=== PATIENT | male | born 1970 | race African-American/Black ===

== ENCOUNTER 2019-11-20 11:00 | Outpatient (RCR) | payer BC, SELFPAY ==
[2019-09-18 09:21] VITALS: BMI 33.2
[2019-11-20 11:04] VITALS: BMI 33.3
[2019-11-20 11:07] VITALS: BMI 33.3
== END 2019-12-17 23:59 | disposition home or self-care (01) ==
LOC: ANHDMC 11:00
PROVIDERS: PCP Family Medicine; Visit Provider Family Medicine
DX: E11.65 Type 2 diabetes mellitus with hyperglycemia (principal); Z71.3 Dietary counseling and surveillance
CPT/HCPCS: 97802

== ENCOUNTER 2022-08-21 09:06 | Outpatient (CLI) | payer OTHER, SELFPAY ==
[2022-08-21 19:55] LABS: Alanine Aminotransferase 47 U/L (6-50); Albumin Level 4.4 g/dL (3.5-5.1); Alkaline Phosphatase 85 U/L (38-126); Anion Gap 8 mmol/L (8-16); Aspartate Amino Transferase 79 U/L (17-59); Bilirubin,Total 0.5 mg/dL (0.2-1.3); Blood Urea Nitrogen 25 mg/dL (9-20); Calcium 9.6 mg/dL (8.4-10.2); Carbon Dioxide 30 mmol/L (22-30); Chloride 102 mmol/L (98-107); Cholesterol 113 mg/dL (0-200); Estimated Glomerular Filt Rate 56; Glucose 87 mg/dL (65-110); HDL Direct 53 mg/dL; Potassium 4.5 mmol/L (3.4-5.0); Sodium 140 mmol/L (137-145); Triglycerides 50 mg/dL (<150)
[2022-08-21 20:06] LABS: LDL Cholesterol Direct 35 mg/dL
[2022-08-21 21:32] LABS: Creatinine Urine 212.9 mg/dL
[2022-08-21 21:37] LABS: MALB Creatinine Ratio 4.1 mg/g (0-30); Microalbumin Urine Random 8.8 mg/L (0-16.7)
== END 2022-08-21 09:07 | disposition home or self-care (01) ==
LOC: ANHGOSHLAB 09:08
PROVIDERS: PCP Family Medicine; Visit Provider Family Medicine
DX: E11.9 Type 2 diabetes mellitus without complications (principal)
CPT/HCPCS: 36415; 80053; 80061; 82043; 82607; 83036

== ENCOUNTER 2023-02-01 11:15 | Outpatient (CLI) | payer OTHER, SELFPAY ==
[2023-02-01 20:06] LABS: Kit Draw Collected
== END 2023-02-01 11:16 | disposition home or self-care (01) ==
LOC: ANHGOSHLAB 11:17
PROVIDERS: PCP Family Medicine; Visit Provider Family Medicine
DX: E11.9 Type 2 diabetes mellitus without complications (principal); Z12.5 Encounter for screening for malignant neoplasm of prostate
CPT/HCPCS: 36415

== ENCOUNTER 2023-06-04 11:46 | Day surgery (SDC) | payer OTHER, SELFPAY ==
[2023-05-16 07:53] VITALS: BMI 30.1
--- NOTE | 2023-06-01 14:10 | WPDANESEPPF ---
Anes - Initial Pre Proc Eval Procedure: Operation Date: 06/04/23 14:00 Proposed Procedures p Screening Colonoscopy - Barrett Garcia MD Date/Time: 06/01/23 14:10 Surgeon: Barrett Garcia MD Pre Op Diagnosis: Neoplasm Screening Patient Data Age: 52 Gender: M Height: 1.73 m Weight: 89.811 kg Allergies Allergy/AdvReac Type Severity Reaction Status Date / Time No Known Allergies Allergy Verified 06/04/23 12:24 Home Medications Medication Instructions Recorded Confirmed Type flash glucose sensor (FreeStyle See Rx Instructions .Route 11/28/21 06/04/23 Rx Simona 14 Day Sensor kit) .COMPLEX #6 ea sildenafil 100 mg tablet See Rx Instructions .Route 05/17/22 06/04/23 Rx .COMPLEX #30 tabs atorvastatin 10 mg tablet See Rx Instructions .Route 02/27/23 06/04/23 Rx .COMPLEX #90 tabs lisinopril 2.5 mg tablet See Rx Instructions .Route 02/27/23 06/04/23 Rx .COMPLEX #90 tabs metformin 500 mg tablet,extended See Rx Instructions .Route 02/27/23 06/04/23 Rx release 24 hr .COMPLEX #360 tabs sodium,potassium,mag sulfates 17.5 See Rx Instructions PO .COMPLEX 05/16/23 06/04/23 Rx gram-3.13 gram-1.6 gram oral soln #354 mL (Suprep Bowel Prep Kit) cinnamon bark 500 mg capsule 500 mg PO DAILY 05/23/23 06/04/23 History (Cinnamon) multivitamin 1 tablet PO DAILY 05/23/23 06/04/23 History Patient hx anesthesia problems: none Family hx anesthesia problems: none Results Review: All pre-operative results and documents have been reviewed as part of the pre-operative evaluation. [facility] Past Medical History Medical History (Updated 06/04/23 @ 12:59 by Barrett Garcia MD) Cervical radiculopathy at C5 Hypertension Mixed hyperlipidemia Right elbow tendonitis Sprain of medial collateral ligament of right knee, initial encounter Type 2 diabetes mellitus without complications Family History Family History Mother Family history of malignant neoplasm of breast in first degree relative Social History Social History (Reviewed 06/29/23 @ 10:26 by HOLDEN Mcfarland Smoking status: Never smoker Alcohol intake: current Substance use type: does not use Lack of Transportation: No Lack of Food: Never True Current Housing: I Have Housing Concerned About Future Housing: No Difficulty Paying Gas/Electric Bills: No Difficulty Paying for Meds: No Currently Unemployed: No Education: Master's Degree or Higher Difficulty w/ Childcare or Family Care: No Gender identity (if verbalized by the patient): Male Spiritual care concerns: No Anes - Eval Final PreProcedure Day of Procedure 06/01/23 14:10 Patient weight: obese Heart: regular rate and rhythm Lungs: clear to auscultation Airway: Mallampati scale class II Neurological: alert and oriented Last oral intake: >/= 8 hours ASA classification: III Emergent: no Anesthetic plan: proceed Anesthesia type and monitoring: general GIVS and standard monitoring Results Review: All pre-operative results and documents have been reviewed as part of the pre-operative evaluation. Informed Consent: The patient's anesthetic plan and its attendant risks and benefits were discussed with the patient/family/POA. Questions were solicited and answers provided to the satisfaction of the patient/family/POA.
[2023-06-04 12:25] VITALS: BP 147/101; PULSE 64; RESP 16; TEMP 37.3; O2SAT 100
[2023-06-04 12:44] LABS: Glucose Point of Care 93 mg/dl (65-105)
[2023-06-04] MEDS: LACTATED RINGERS 1,000 ML 150 ML IV CONT (12:44)
--- NOTE | 2023-06-04 12:58 | PM.HPGS ---
History of Present Illness History of Present Illness Consent: Risks, benefits, and alternatives have been discussed and questions answered. Patient agrees to proceed with procedure. Chief complaint: Neoplasm Screening Narrative: Ravi Pastor is a 52 year old male Presents for screening colonoscopy. Patient's current weight appetite and bowel movements are normal. Patient is abdominal pain. He has had no bleeding. Family history is noncontributory. Review of Systems Review of Systems: Review of systems noncontributory. [facility] Past Medical History Medical History (Updated 06/04/23 @ 12:59 by Barrett Garcia MD) Cervical radiculopathy at C5 Hypertension Mixed hyperlipidemia Right elbow tendonitis Sprain of medial collateral ligament of right knee, initial encounter Type 2 diabetes mellitus without complications Family History Family History Mother Family history of malignant neoplasm of breast in first degree relative Social History Social History Smoking status: Never smoker Alcohol intake: current Substance use type: does not use Lack of Transportation: No Lack of Food: Never True Current Housing: I Have Housing Concerned About Future Housing: No Difficulty Paying Gas/Electric Bills: No Difficulty Paying for Meds: No Currently Unemployed: No Education: Master's Degree or Higher Difficulty w/ Childcare or Family Care: No Gender identity (if verbalized by the patient): Male Spiritual care concerns: No Meds Home Medications and Allergies Home Medications Medication Instructions Recorded Confirmed Type flash glucose sensor (FreeStyle See Rx Instructions .Route 11/28/21 06/04/23 Rx Simona 14 Day Sensor kit) .COMPLEX #6 ea sildenafil 100 mg tablet See Rx Instructions .Route 05/17/22 06/04/23 Rx .COMPLEX #30 tabs atorvastatin 10 mg tablet See Rx Instructions .Route 02/27/23 06/04/23 Rx .COMPLEX #90 tabs lisinopril 2.5 mg tablet See Rx Instructions .Route 02/27/23 06/04/23 Rx .COMPLEX #90 tabs metformin 500 mg tablet,extended See Rx Instructions .Route 02/27/23 06/04/23 Rx release 24 hr .COMPLEX #360 tabs sodium,potassium,mag sulfates 17.5 See Rx Instructions PO .COMPLEX 05/16/23 06/04/23 Rx gram-3.13 gram-1.6 gram oral soln #354 mL (Suprep Bowel Prep Kit) cinnamon bark 500 mg capsule 500 mg PO DAILY 05/23/23 06/04/23 History (Cinnamon) multivitamin 1 tablet PO DAILY 05/23/23 06/04/23 History Allergies Allergy/AdvReac Type Severity Reaction Status Date / Time No Known Allergies Allergy Verified 06/04/23 12:24 Vital Signs Vital Signs - 24 hr 06/04/23 12:25 Temperature 99.1 F Pulse Rate 64 Respiratory Rate 16 Blood Pressure 147/101 H Pulse Oximetry 100 Oxygen Delivery Room Air Exam Narrative: Physical exam reveals patient to be alert. Vital signs stable. HEENT is unremarkable. Patient is anicteric. Lungs are clear to auscultation and percussion. Heart is without murmur or sounds. Abdomen bowel sounds are present soft nontender with no organomegaly. Digital external rectal exam normal. Assessment and Plan Assessment and plan (1) Encounter for screening colonoscopy: Code(s): Z12.11 - Encounter for screening for malignant neoplasm of colon Status: Acute Assessment and Plan: Patient presents today for screening colonoscopy. He appears to be at average risk for colon polyps. Further recommendation is may be given after in the scope be.
[2023-06-04] MEDS: SIMETHICONE ORAL SUSPENSION 20 MG/0.3 ML 30 ML BOTTLE 0.6 ML IRRIGATION (13:18)
[2023-06-04 13:26] VITALS: BP 100/68; PULSE 68; RESP 12; O2SAT 97
[2023-06-04 13:36] VITALS: BP 124/60; PULSE 61; RESP 14; O2SAT 100
--- NOTE | 2023-06-04 13:36 | WPDANESPN ---
Anes - Prog Note Post-Op Date/Time: 06/04/23 13:36 Cardiovascular status: normal Respiratory status: normal Airway patency: baseline Mental status: baseline Post-Op hydration status: normal Vital Signs: Last Vital Signs Temp 37.3 C 06/04/23 12:25 Pulse 68 06/04/23 13:26 Resp 12 06/04/23 13:26 BP 100/68 06/04/23 13:26 Pulse Ox 97 06/04/23 13:26 O2 Del Method Room Air 06/04/23 13:26 Pain Score (VAS): 0 I/O: Intake & Output 06/03/23 06/04/23 06/04/23 23:59 07:59 15:59 Intake Total 700 Balance 700 06/04/23 12:41 POC Capillary Glucose 93 Post-procedural complaints: none Patient Feedback: Patient satisfied with anesthetic care. Other Findings: Patient vital signs back to baseline. Patient denies nausea and vomiting. Patient's pain under control. Patient OK for discharge.
[2023-06-04 13:46] VITALS: BP 129/77; PULSE 56; RESP 15; O2SAT 100
== END 2023-06-04 13:56 | disposition home or self-care (01) ==
PROVIDERS: PCP Family Medicine; Visit Provider Internal Medicine Gastroenterology
PROC: 0DJD8ZZ Inspection of Lower Intestinal Tract, Via Natural or Artificial Opening Endoscopic (ICD-10-PCS; CPT 45378; principal; 2023-06-04 14:00)
DX: Z12.11 Encounter for screening for malignant neoplasm of colon (principal)
CPT/HCPCS: 45378

== ENCOUNTER 2024-07-28 09:25 | Outpatient (CLI) | payer BC, SELFPAY ==
--- NOTE | ~2024-07-28 | XR_ITS ---
XR hip BI 2V w AP pelvis Ordering provider: Bravo Hernandez MD History: . NO INJURY RIGHT SIDE LBP WITH SCIATICA . Comparison: None. FINDINGS: BONES: No acute fracture or dislocation. HIP JOINT SPACES: Moderate narrowing of both hips. SACROILIAC JOINT SPACES/LUMBAR SPINE: The sacroiliac joint spaces are narrowed.. Mild degenerative ch anges of the visualized lower lumbar spine. PUBIC SYMPHYSIS: Normal. SOFT TISSUES: Normal. IMPRESSION: No acute osseous abnormality of the bilateral hips and pelvis. Bilateral sacroiliitis. Bilateral hip osteoarthritic changes. Reviewed, dictated and finalized at location A. MITE BOMB LOADER IMPRESSION: No acute osseous abnormality of the bilateral hips and pelvis. Bilateral sacroi liitis. Bilateral hip osteoarthritic changes.
--- NOTE | ~2024-07-28 | XR_ITS ---
3 VIEWS LUMBAR SPINE Ordering provider: Bravo Hernandez MD History: . NO INJURY RIGHT SIDE LBP WITH SCIATICA . Comparison: None. FINDINGS: VERTEBRAL BODIES:An attempt of lumbarization of S1. Minimal anterolisthesis at the level of L5-S1. No visible fracture or subluxation. DISK SPACES: Slight narrowing of the disc L5-S1. SOFT TISSUES: Normal. IMPRESSION: No acute osseous abnormality lumbar spine. Minimal anterolisthesis at the level of L5-S1. Reviewed, dictated and finalized at location A. URCE CONSERVATION SPECIALIST
== END 2024-07-28 09:26 | disposition home or self-care (01) ==
PROVIDERS: PCP Family Medicine; Visit Provider Anesthesiology Pain Medicine
DX: M16.0 Bilateral primary osteoarthritis of hip (principal); M46.1 Sacroiliitis, not elsewhere classified; M54.41 Lumbago with sciatica, right side; G89.29 Other chronic pain
CPT/HCPCS: 72114; 73521

== ENCOUNTER 2024-08-19 06:37 | Outpatient (CLI) | payer BC, SELFPAY ==
--- NOTE | ~2024-08-19 | MR_ITS ---
MRI of the lumbar spine Clinical History: Back pain, sciatica Technique: Axial T2-weighted images, and sagittal T1-weighted, T2-weighted, and T2 fat-sat images wer e acquired. Findings: There is no fracture or subluxation of the lumbar spine. Vertebral bodies maintain normal h eight and alignment. No significant bone marrow signal abnormality seen. At L1-L2, there is no disc bulge or herniation. There is moderate facet hypertrophy. No spinal canal stenosis or neural foraminal narrowing. L2-L3, there is minimal disc bulge with moderate facet arthropathy. No central canal stenosis or neur al foraminal narrowing. L3-L4, there is mild disc bulge and severe facet arthropathy. There is mild to moderate central canal stenosis. Neural foramina are preserved. At L4-L5, there is diffuse disc bulge and severe facet arthropathy. There is moderate central canal s tenosis. There is advanced bilateral neural foraminal narrowing. At L5-S1, there is no disc bulge or herniation. There is mild facet arthropathy. No central canal nesha nosis or neural foraminal narrowing. Paravertebral soft tissues are unremarkable. Impression: Advanced degenerative spondylosis at L4-L5, as detailed above. Mild to moderate degenerative change in the remainder of the lumbar spine, as above. Reviewed, dictated and finalized at location . H UP WORKER Impression: Advanced degenerative spondylosis at L4-L5, as detailed above. Mild to moderate degenerative change in the remainder of the lumbar spine, as a ruth ann.
== END 2024-08-19 06:38 | disposition home or self-care (01) ==
PROVIDERS: PCP Family Medicine; Visit Provider Anesthesiology Pain Medicine
DX: M47.816 Spondylosis without myelopathy or radiculopathy, lumbar region (principal); M51.360 Other intervertebral disc degeneration, lumbar region with discogenic back pain only; M54.41 Lumbago with sciatica, right side
CPT/HCPCS: 72148

== ENCOUNTER 2024-10-22 15:39 | Outpatient (CLI) | payer BC, SELFPAY ==
--- OUTSIDE RECORDS SUMMARY | 2024-10-22 17:03 | XMS_ITS | Clinical Summary ---
Author Organization [facility] [employer] Address [address] [place] [address] Care Team Providers Care Blood Bank Supervisor Name Role Phone Unavailable Primary Care Provider Unavailabl e Source Comments [facility],non-owned Affiliates and Associated Physician Practices is amultiple site organization consisting of ambulatory clinics and hospital sitesin [place], [place], [place] and [place]. This disclosure is being madepursuant to the Care Everywhere program and may not contain all information available regarding this patient. Last updated 18.[facility] Social History Tobacco Use Types Packs/Day Years Used Date Smoking Tobacco: Never Assessed Sex and Gender Information Value Date Recorded Sex Assigned at Not on file Gender Identity Not on file Sexual Orientation Not on file Plan of Treatment Health Maintenance Due Date Last Done Comments COLOGUARD (AGES 45-75) - COL ON CA SCREENING 1972 COLON MONITORING 1972 COLONOSCOPY - COLON CA SCREENING 1972 CT COLONOGRAPHY - COLON CA SCREENING 1972 Colorectal Cancer Screening 1972 FIT - COLON CA SCREENING 1972 FLEX SIG - COLON CA SCREENING 1972 LIPID TESTING 1972 HIV SCREENING 12/31/1987 HEPATITIS C SCREENING 12/26/1990 DTAP/TDAP/TD VACCINES (1 - Tdap) 12/31/1991 HEPATITIS B VACCINE (1 of 3 - 19+ 3-dose series) 12/31/1991 PNEUMOCOCCAL VACCINE 50+ (1 of 1 - PCV) 2022 ZOSTER VACCINE (1 of 2) 2022 COVID-19 VACCINE (1 - 2023-2 5 season) 2024 INFLUENZA VACCINE (#1) 2024 DEPRESSION SCREENING 08/06/2024 HIB VACCINE Aged Out No longer eligi ble based on patient's age to complete this topic HPV VACCINE Aged Out No longer eligi ble based on patient's age to complete this topic MENINGOCOCCAL (Group B) VACC INE SHARED DECISION-MAKING Aged Out No longer eligibl e based on patient's age to complete this topic MENINGOCOCCAL GROUPS A/C/Y/W VACCINE Aged Out No longer eligible b ased on patient's age to complete this topic PNEUMOCOCCAL VACCINE Aged Out No long er eligible based on patient's age to complete this topic
[2024-10-22 19:19] LABS: Basophils Absolute Auto 0.1 K/mm3 (0.0-0.1); Basophils Percent Auto 1.1 % (0.2-1.2); Eosinophils Absolute Auto 0.3 K/mm3 (0-0.3); Eosinophils Percent Auto 4.6 % (0-4.4); Hematocrit 48.1 % (42.0-52.0); Hemoglobin 15.8 g/dL (14.0-18.0); Immature Granulocyte Absolute 0.01 K/mm3 (0.00-0.031); Immature Granulocyte Percent A 0.2 % (0-0.5); Lymphocytes Absolute Auto 1.54 K/mm3 (0.9-3.2); Lymphocytes Percent Auto 24.2 % (18.3-44.2); Mean Corpuscular HGB Conc 32.8 g/dl (32-36); Mean Corpuscular Hemoglobin 28.8 pg (26-34); Mean Corpuscular Volume 87.6 fl (80-100); Mean Platelet Volume 11.8 fl (7.4-10.4); Monocytes Absolute Auto 0.5 K/mm3 (0.1-0.6); Monocytes Percent Auto 7.4 % (2.6-8.5); Neutrophils Percent Auto 62.5 % (45.5-73.1); Platelet Count Result 225 k/mm3 (150-375); Red Blood Count 5.49 M/mm3 (4.6-6.20); Red Cell Distribution Width 13.2 % (11.5-14.5); White Blood Count 6.4 K/mm3 (4.5-10.0)
[2024-10-22 20:04] LABS: Alanine Aminotransferase 50 U/L (6-50); Albumin Level 4.3 g/dL (3.5-5.1); Alkaline Phosphatase 96 U/L (38-126); Anion Gap 4 mmol/L (4-12); Aspartate Amino Transferase 64 U/L (17-59); Bilirubin,Total 0.4 mg/dL (0.2-1.3); Blood Urea Nitrogen 26 mg/dL (9-20); Calcium 9.5 mg/dL (8.4-10.2); Carbon Dioxide 35 mmol/L (22-30); Chloride 99 mmol/L (98-107); Cholesterol 122 mg/dL (0-200); Estimated Glomerular Filt Rate 51; Glucose 140 mg/dL (65-110); HDL Direct 55 mg/dL; Potassium 5.2 mmol/L (3.4-5.0); Sodium 138 mmol/L (137-145); Triglycerides 126 mg/dL (<150)
[2024-10-22 20:16] LABS: LDL Cholesterol Direct 40 mg/dL
[2024-10-22 20:28] LABS: Hemoglobin A1C 6.2 % (<5.7)
[2024-10-22 20:32] LABS: Prostate Specific Antigen 1.4 ng/mL (< OR = 4.0)
[2024-10-22 20:57] LABS: Vitamin B12 > 1000.0 pg/mL (239-931)
[2024-10-22 22:17] LABS: Creatinine Urine 128.4 mg/dL
[2024-10-22 22:47] LABS: MALB Creatinine Ratio < 4.7 mg/g (0-30); Microalbumin Urine Random < 6.0 mg/L (0-16.7)
== END 2024-10-22 15:40 | disposition home or self-care (01) ==
LOC: ANHGOSHLAB 15:41
PROVIDERS: PCP Family Medicine; Visit Provider Family Medicine
DX: Z12.5 Encounter for screening for malignant neoplasm of prostate (principal); E11.9 Type 2 diabetes mellitus without complications
CPT/HCPCS: 36415; 80053; 80061; 82043; 82607; 83036; 84153; 85025; G0103

== ENCOUNTER 2024-11-10 00:16 | Day surgery (SDC) | payer BC, SELFPAY ==
[2024-10-28 08:38] VITALS: BMI 29.5
--- NOTE | 2024-10-28 08:39 | PC.NURSE ---
Report to the Outpatient Waiting Room, entrance under the green pavilion located off [facility], at time _1100_ on date _[id number]_. Planned Procedure Time: _1200_.? Time changes happen often and if your time is changed the preop area will call you the afternoon before. - You and your visitor will be asked to self-screen and do not enter if you have any COVID symptoms. Please call surgeon if you need to reschedule. - A mask is optional within the hospital at this time. No smoking, or chewing tobacco (or any form of nicotine). Ok to eat breakfast and take medications. Nothing to eat or drink for 2 hours prior to procedure. No chewing gum, candy or mints. Take only the following medications with a SIP of water on the morning of surgery: ____All medications OK___ DO NOT STOP ANY OF YOUR OTHER PRESCRIPTION MEDICATIONS PRIOR TO SURGERY EXCEPT THE FOLLOWING Hold all vitamins and supplements for 3 days per anesthesiologist. Medications to discontinue per physician Date to take last dose Please no make-up, nail italian, hairspray, perfume, deodorant, or body powder the day of surgery.? No jewelry (including any body piercings) or valuables the day of surgery, leave them at home.? Please take a shower or bath the night before, or the morning of, surgery with an antibacterial soap.? Wear comfortable, loose fitting clothing.? - Jewelry must be removed prior to entering the operating room.? Rings and piercings that are not removed may be cut off. - The hospital will not accept responsibility for valuables.? - Please leave all valuables, including medications, at home the day of surgery. If you are going home after surgery, a licensed p d driver must drive you home.? - NO public transportation without another adult if you receive anesthesia. Follow any additional instructions given to you from your surgeon. Telephone instructions given to __Ravi__and asked if any additional questions and then verbalized understanding. Patient advised to call surgeon office or pre surgery nurse liaison [phone] if any additional questions.
[2024-11-10] VITALS (8 sets, daily range): BP systolic 94–137; BP diastolic 50–79; PULSE 46–92; RESP 16–20; TEMP 36.1–36.8; O2SAT 97–100; BMI 30.7
--- NOTE | ~2024-11-10 | XR_ITS ---
EXAMINATION: XR fluoroscopy no charge DATE: 11/10/2024 12:34 INDICATION: Epidural steroid injections TECHNIQUE: 4 fluoroscopic images of the lumbar spine were obtained during procedure performed by Dr. Hernandez. Radiologist was not present for the imaging or procedure. The amount of fluoroscopy time used d uring this procedure was 1.2 minutes. Total DAP was 13.415 Gycm^2. COMPARISON: None. FINDINGS: Images demonstrate a small amount of injected contrast at the right-sided neural foramina a t L3-L4 and L4-L5. [place] advanced to the contralateral left L3-L4 and L4-L5 neural foramina with good bsequent injection of small amounts of injected epidural contrast extending proximally and distally a long the nerve roots. IMPRESSION: 1. Fluoroscopy utilized during bilateral L3-L4 and L4-L5 transforaminal epidural injections. See proc edure note for further detail. Reviewed, dictated and finalized at location A. IMPRESSION: 1. Fluoroscopy utilized during bilateral L3-L4 and L4-L5 transforaminal epidura l injections. See procedure note for further detail.
--- OUTSIDE RECORDS SUMMARY | 2024-11-10 00:18 | XMS_ITS | Clinical Summary ---
Author Organization [facility] [employer] Address [address] [place] [address] Care Team Providers Care Pole Lift Operator Name Role Phone Unavailable Primary Care Provider Unavailabl e Source Comments [facility],non-owned Affiliates and Associated Physician Practices is amultiple site organization consisting of ambulatory clinics and hospital sitesin [place], [place], [place] and [place]. This disclosure is being madepursuant to the Care Everywhere program and may not contain all information available regarding this patient. Last updated 18.[facility] Social History Tobacco Use Types Packs/Day Years [...]
--- NOTE | 2024-11-10 11:49 | PM.HPGS ---
History of Present Illness History of Present Illness Consent: Risks, benefits, and alternatives have been discussed and questions answered. Patient agrees to proceed with procedure. Chief complaint: spinal stenosis, lumbosacral radiculopathy Narrative: Ravi Pastor is a 53 year old male with chronic, recalcitrant and disabling low back and lower extremity pain secondary to lumbar radiculopathy with failure to respond to aggressive conservative measures including PT, oral and topical analgesics, opioid and nonopioid analgesics, rest, time and activity/behavioral modification over the past 6-12 months who presents for bilateral lumbar transforaminal epidural steroid injection at L3-4, L4-5 under fluoroscopic guidance and with contrast control. Review of Systems Review of Systems: Patient denies any new infectious, allergic, cardiopulmonary, neurologic or constitutional symptoms or changes in activity tolerance or exercise capacity including new or progressive SOB/HUERTA, peripheral edema, productive cough, dysuria, nausea/vomiting, diarrhea, weight change, fevers/chills/night sweats, new or progressive neurologic deficit, cognitive or mood changes since last seen, except as documented in the HPI. All systems reviewed & are unremarkable except as noted in HPI and below PMFSH Past Medical History Medical History Hypertension Cervical radiculopathy at C5 Type 2 diabetes mellitus without complications Mixed hyperlipidemia Sprain of medial collateral ligament of right knee, initial encounter Right elbow tendonitis Family History Family History Mother Family history of malignant neoplasm of breast in first degree relative Social History Social History Smoking status: Never smoker Alcohol intake: current Substance use type: does not use Lack of Transportation: No Lack of Food: Never True Current Housing: I Have Housing Concerned About Future Housing: No Difficulty Paying Gas/Electric Bills: No Difficulty Paying for Meds: No Currently Unemployed: No Education: Master's Degree or Higher Difficulty w/ Childcare or Family Care: No Living arrangements: alone Gender identity (if verbalized by the patient): Male Spiritual care concerns: No Meds Home Medications and Allergies Home Medications ?Medication ?Instructions ?Recorded ?Confirmed ?Type flash glucose sensor (FreeStyle See Rx Instructions .Route 11/28/21 10/28/24 Rx Simona 14 Day Sensor kit) .COMPLEX #6 ea cinnamon bark 500 mg capsule 500 mg PO DAILY 05/23/23 11/10/24 History (Cinnamon) multivitamin 1 tablet PO DAILY 05/23/23 11/10/24 History sildenafil 100 mg tablet See Rx Instructions .Route 12/24/23 10/28/24 Rx .COMPLEX #30 tabs metformin 500 mg tablet,extended See Rx Instructions .Route 08/19/24 11/10/24 Rx release 24 hr .COMPLEX #360 tabs atorvastatin 10 mg tablet See Rx Instructions .Route 08/20/24 11/10/24 Rx .COMPLEX #90 tabs lisinopril 2.5 mg tablet See Rx Instructions .Route 08/20/24 11/10/24 Rx .COMPLEX #90 tabs pregabalin 150 mg capsule 150 mg PO Q12H 30 days #60 caps 10/27/24 10/28/24 Rx Allergies Allergy/AdvReac Type Severity Reaction Status Date / Time No Known Allergies Allergy Verified 11/10/24 10:41 Vital Signs Vital Signs - 24 hr 11/10/24 10:47 Temperature 98.2 F Pulse Rate 85 Respiratory Rate 16 Blood Pressure 137/79 Pulse Oximetry 98 Oxygen Delivery Room Air Exam Narrative: The patient's physical exam is essentially unchanged from prior examination on 09/15/24. Specifically, patient demonstrates normal lung capacity, tidal volume and respiratory rate without wheezes, crackles, rales or rubs. Heart rate and rhythm are regular without murmurs, gallops or rubs. No JVD. Pulses 2+ globally without increasing peripheral edema. AAOx3 with no evidence of confusion, intoxication or altered mental state, NC/AT without acute distress or altered consciousness. Speech, cognition, mood, insight and judgment at baseline and within normal limits. Assessment and Plan Assessment and plan (1) Lumbosacral radiculopathy: Code(s): M54.17 - Radiculopathy, lumbosacral region Status: Acute Assessment and Plan: proceed as planned with bilateral lumbar transforaminal epidural steroid injection at L3-4, L4-5 under fluoroscopic guidance and with contrast control. (2) Spinal stenosis, lumbar region with neurogenic claudication: Code(s): M48.062 - Spinal stenosis, lumbar region with neurogenic claudication Status: Acute
--- NOTE | 2024-11-10 11:51 | WPDHPUPDATE1 ---
History and Physical Update Update Date/Time: 11/10/24 11:51 History and Physical has been reviewed, including an updated exam of the patient. There are NO changes in the patient's condition. Risks, benefits, and alternatives have been discussed and questions answered. Patient agrees to proceed with procedure.
--- NOTE | 2024-11-10 11:52 | W.PM.PROC2 ---
Procedure Note - Detailed Date of Procedure 11/10/24 Pre-op Diagnosis spinal stenosis, lumbosacral radiculopathy Post-op Diagnosis Same Procedure Performed Bilateral Lumbar Transforaminal Epidural Steroid Injection under Fluoroscopic Guidance and with Contrast Control at L3-4, L4-5. Surgeon Bravo Hernandez MD Anesthesia Local Description of Procedure INFORMED CONSENT: Risks, benefits and alternatives to the procedure were discussed in detail with the patient who expressed explicit understanding and consent to proceed. Patient was informed verbally and in written form regarding the risks associated with the procedure including the low risk of serious infection, bleeding/bruising, allergic reaction, nerve or organ injury, paralysis, procedural site pain or discomfort, worsening pain and/or mobility, failure to treat and/or disfigurement. The patient expressed explicit understanding and consent to proceed. All materials required for the procedure were available prior to procedure start. Site and side was marked prior to procedure and confirmed in the presence of the patient. PROCEDURE IN DETAIL: The patient was brought to the procedural suite and placed in the prone position. Patient was made comfortable with use of pillows under the head/chest, hips and ankles. Skin overlying the injection site was prepared broadly with ChloraPrep applicator and draped in a sterile manner. Aseptic technique was employed throughout. The endplates of the vertebral body at the site of interest were aligned in the AP view. Ipsilateral oblique angulation was utilized to better visualize the neuroforamen of interest. Local anesthesia was established by infiltration with approximately 5 mL of 0.5% PF lidocaine via a 1-1/2 inch 27-gauge needle. A 22-gauge 3.5 inch Rufino (pencil point) spinal needle was advanced until the needle approached the 6 o'clock position on the pedicle just superior to the exiting nerve root. on the right at L4-5. Lateral view was utilized to confirm appropriate position of the needle tip within the superior and posterior portion of the respective foramen. In an AP view, 1 mL of Omnipaque 300 contrast medium was injected after negative aspiration for CSF, blood or other bodily fluid, showing appropriate neurogram without evidence of intravascular or intrathecal spread of contrast. Digital subtraction imaging was used with an additional 1ml of the same contrast medium to confirm absence of intravascular contrast spread. A 1mL solution containing 3 mg of betamethasone was injected after negative repeat aspiration. Appropriate spread of the injectate was confirmed with washout of previously injected contrast. No parasthesias were elicited. Needle was removed completely intact without difficulty. The same exact procedure was repeated for all remaining levels on the ipsilateral side, right L3-4 neuroforamen, modified as necessary to accommodate for the new target location with identical findings and results and no evidence of complication. [The same exact procedure was repeated for all remaining levels on the contralateral side, left L3-4, L4-5 neuroforamen, modified as necessary to accommodate for the new target location with identical findings and results and no evidence of complication.] Images were saved and documented in the patient chart. Patient's skin was cleaned and sterile bandage applied. The patient tolerated the procedure well. The patient was transported to the recovery area in stable condition where they were observed for an appropriate amount of time prior to discharge, without evidence of complication. The patient was instructed to avoid excessive activity for the next 48 hours, including climbing and frequent use of stairs. Showers only for 48 hours. They were instructed not to drive or operate heavy machinery for 24 hours. They are to monitor for severe headaches, fevers, chills, night sweats, erythema/swelling at the site or any other signs of infection, bleeding/bruising, bowel or bladder changes as well as new pain, weakness or numbness in the upper or lower extremity. Should they notice these changes, they are instructed to call our office immediately or report directly to the nearest Emergency Department if no answer or if after posted office hours. COMPLICATIONS: None COMMENTS: None CONTRAST WASTED: 22 mL Omnipaque 300. STEROID WASTED: 0 mg of betamethasone. Complications No immediate complications Condition Stable Disposition Same day [facility] Billing Surgery - Charge Forward: Surgery Billing
[2024-11-10] MEDS: LIDOCAINE 2% LOCAL INJ 20 ML VIAL INFILTRATE (12:10)
[2024-11-10] MEDS: BETAMETHASONE SODIUM PHOSPHATE PF INJ 6 MG/ML VIAL INFILTRATE (12:10)
[2024-11-10 12:27] LABS: Glucose Point of Care 145 mg/dl (65-105)
== END 2024-11-10 12:51 | disposition home or self-care (01) ==
PROVIDERS: PCP Family Medicine; Visit Provider Anesthesiology Pain Medicine
PROC: (CPT 64483; principal; 2024-11-10 12:00)
DX: M54.17 Radiculopathy, lumbosacral region (principal); M48.062 Spinal stenosis, lumbar region with neurogenic claudication; I10 Essential (primary) hypertension; E78.2 Mixed hyperlipidemia; Z79.84 Long term (current) use of oral hypoglycemic drugs; Z80.3 Family history of malignant neoplasm of breast
CPT/HCPCS: 64483; 64484; 82948; 99199; J2003; Q9965

== ENCOUNTER 2024-12-08 00:36 | Day surgery (SDC) | payer BC, SELFPAY ==
--- NOTE | 2024-11-25 11:01 | PC.NURSE ---
Report to the Outpatient Waiting Room, entrance under the green pavilion located off [facility], at time __2:15pm__ on date ___12/08/24___. Planned Procedure Time: ___3:15pm___.? Time changes happen often and if your time is changed the preop area will call you the afternoon before. - You and your visitor will be asked to self-screen and do not enter if you have any COVID symptoms. Please call surgeon if you need to reschedule. - A mask is optional within the hospital at this time. Follow office instructions from [facility] document for anticoagulant medication instructions 1. It is alright to eat a light breakfast/lunch prior to procedure depending on schedule time. Do not eat or drink anything other than scheduled medications with small amounts of clear liquid (water) for two hours prior to procedure. 2. Take a bath/shower the evening before and morning of procedure with an antibacterial soap. 3. Please take your scheduled medications, especially blood pressure and diabetes medications as prescribed, with small sips of water prior to procedure. You may also take your prescribed pain medicaitons as needed. 4. Patient is not allowed to drive 24 hours after procedure. Please no make-up, nail malay, hairspray, perfume, deodorant, or body powder the day of surgery.? No jewelry (including any body piercings) or valuables the day of surgery, leave them at home. Wear comfortable, loose fitting clothing.? - Jewelry must be removed prior to entering the operating room.? Rings and piercings that are not removed may be cut off. - The hospital will not accept responsibility for valuables.? - Please leave all valuables, including medications, at home the day of surgery. Follow any additional instructions given to you from your surgeon. Telephone instructions given to ___Ravi___and asked if any additional questions and then verbalized understanding. Patient advised to call surgeon office or pre surgery nurse liaison [phone] if any additional questions.
[2024-11-25 11:21] VITALS: BMI 32.7
--- NOTE | ~2024-12-08 | XR_ITS ---
INTRAOPERATIVE FLUOROSCOPY: CLINICAL HISTORY: 53 years old Male; LEFT L3,4,5 BLOCK/LEFT L4,L5-S1 FACET JTS PROCEDURE COMMENTS: Limited intraoperative fluoroscopy of the lumbar spine was performed. CUMULATIVE DOSE: 4.8 mGy FLUOROSCOPY TIME: 20 seconds FINDINGS/IMPRESSION: Please refer to operative note for further details. Reviewed, dictated and finalized at location A.
--- OUTSIDE RECORDS SUMMARY | 2024-12-08 00:39 | XMS_ITS | Clinical Summary ---
Author Organization [facility] Address [address] [place] [address] Care Team Providers Care Traffic Control Signaler Name Role Phone Unavailable Primary Care Provider Unavailabl e Source Comments [facility],non-owned Affiliates and Associated Physician Practices is amultiple site organization consisting of ambulatory clinics and hospital sitesin [place], [place], [place] and [place]. This disclosure is being madepursuant to the Care Everywhere program and may not contain all information available regarding this patient. Last updated 18.[facility] Social History Tobacco Use Types Packs/Day Years Used Date Smoking Tobacco: Never Assessed Sex and Gender Information Value Date Recorded Sex Assigned at Not on file Legal Sex Male 5:26 PM CDT Gender Identity Not on file Sexual Orientation [...] VACCINE (1 - 2023-2 5 season) 2024 DEPRESSION SCREENING 08/06/2024 INFLUENZA VACCINE (Season Ended) 2025 HIB VACCINE Aged Out No longer eligi [...]
--- NOTE | 2024-12-08 12:47 | WPDHPUPDATE1 ---
History and Physical Update Update Date/Time: 12/08/24 12:47 History and Physical has been reviewed, including an updated exam of the patient. There are NO changes in the patient's condition. Risks, benefits, and alternatives have been discussed and questions answered. Patient agrees to proceed with procedure.
--- NOTE | 2024-12-08 12:48 | P.OP_ITS ---
Procedure Note - Detailed Date of Procedure 12/08/24 Pre-op Diagnosis Lumbosacral spondylosis, chronic low back pain Post-op Diagnosis Same Procedure Performed Diagnostic left Lumbar Medial Branch/Dorsal Ramus Blocks at L3, L4, L5 Treating the Ipsilateral L4-5, L5-S1 Facet Joints Under Fluoroscopic Guidance and with Contrast Control. (2 levels blocked). Surgeon Bravo Hernandez MD Software Recruiter None. Anesthesia Local Description of Procedure INFORMED CONSENT: Risks, benefits and alternatives to the procedure were discussed in detail with the patient who expressed explicit understanding and consent to proceed. Patient was informed verbally and in written form regarding the risks associated with the procedure including the low risk of serious infection, bleeding/bruising, allergic reaction, nerve or organ injury, paralysis, procedural site pain or discomfort, worsening pain and/or mobility, failure to treat and/or disfigurement. The patient expressed explicit understanding and consent to proceed. All materials required for the procedure were available prior to procedure start. Site and side were marked prior to procedure and confirmed in the presence of the patient. PROCEDURE IN DETAIL: The patient was brought to the procedural suite and placed in the prone position. Patient was made comfortable with use of pillows under the head/chest, hips and ankles. Skin overlying the injection site on the affected side(s) was prepared broadly with ChloraPrep applicator and draped in a sterile manner. Aseptic technique was used throughout. The endplates of the vertebral bodies at the site(s) of interest were aligned in the AP view. Ipsilateral oblique angulation was utilized to optimize visualization of the intersection between the superior articulating process and transverse process at each target site. Local anesthesia was established by infiltration with approximately 5 mL of 1% lidocaine via a 1-1/2 inch 27-gauge needle. A 25-gauge 5.0 inch Quincke spinal needle was advanced until the needle tip contacted periosteum at the target site, left L3. Lateral view was utilized to confirm the appropriate placement of the needle tip just anterior to the facet line and superior to the pedicle. In the Lateral view, 0.25 mL of Omnipaque 300 contrast medium was injected after negative aspiration for CSF, blood or other bodily fluid, showing appropriate extra-articular spread of contrast without evidence of intravascular, foraminal or intrathecal placement. A 0.5 mL solution of 0.5% PF bupivacaine was injected after negative repeat aspiration. Appropriate spread of the injectate was confirmed with washout of previously injected contrast. No parasthesias were elicited. Needle was removed completely intact without difficulty. The same exact procedure was repeated for all remaining levels on the ipsilateral side, left L4, L5 medial branches/dorsal ramus, modified as necessary to accommodate for the new target location with identical findings and results and no evidence of complication. Images were saved and documented in the patient chart. Patient's skin was cleaned and sterile bandage applied. The patient tolerated the procedure well. The patient was transported to the recovery area in stable condition where they were observed for an appropriate amount of time prior to discharge, without evidence of complication. Patient was instructed on the appropriate completion of a pain diary over the next 12-24 hours. The patient was instructed to avoid excessive activity for the next 48 hours, including climbing and frequent use of stairs. Showers only for 48 hours. They were instructed not to drive or operate heavy machinery for 24 hours. They are to monitor for severe headaches, fevers, chills, night sweats, erythema/swelling at the site or any other signs of infection, bleeding/bruising, bowel or bladder changes as well as new pain, weakness or numbness in the upper or lower extremity. Should they notice these changes, they are instructed to call our office immediately or report directly to the nearest Emergency Department if no answer or if after posted office hours. COMPLICATIONS: None COMMENTS: None CONTRAST WASTED: 29.25 mL Omnipaque 300. Complications No immediate complications Condition Stable Disposition Same day [facility] Billing Surgery - Charge Forward: Surgery Billing
[2024-12-08 14:25] VITALS: BP 126/77; PULSE 85; RESP 16; TEMP 36.5; O2SAT 99
[2024-12-08 15:37] VITALS: BP 143/67; PULSE 86; RESP 16; O2SAT 98
[2024-12-08] MEDS: BUPivacaine HCL 0.5% PF 30 ML VIAL INFILTRATE (15:40)
[2024-12-08 15:45] VITALS: BP 142/56; PULSE 55; RESP 16; O2SAT 100
== END 2024-12-08 16:08 | disposition home or self-care (01) ==
PROVIDERS: PCP Family Medicine; Visit Provider Anesthesiology Pain Medicine
PROC: (CPT 64493; principal; 2024-12-08 15:15)
DX: M54.50 Low back pain, unspecified (principal); M54.17 Radiculopathy, lumbosacral region; M48.062 Spinal stenosis, lumbar region with neurogenic claudication; G89.29 Other chronic pain; I10 Essential (primary) hypertension; E11.9 Type 2 diabetes mellitus without complications; E78.2 Mixed hyperlipidemia; Z98.1 Arthrodesis status; Z80.3 Family history of malignant neoplasm of breast
CPT/HCPCS: 64493; 64494; 99199; Q9965

== ENCOUNTER 2025-01-05 00:10 | Day surgery (SDC) | payer BC, SELFPAY ==
--- NOTE | 2024-12-30 13:16 | PC.NURSE ---
Report to the Outpatient Waiting Room, entrance under the green pavilion located off [facility], at time _1100_ on date _[id number]_. Planned Procedure Time: _1200_.? Time changes happen often and if your time is changed the preop area will call you the afternoon before. - You and your visitor will be asked to self-screen and do not enter if you have any COVID symptoms. Please call surgeon if you need to reschedule. - A mask is optional within the hospital at this time. No smoking, or chewing tobacco (or any form of nicotine). Ok for light breakfast, Nothing to eat or drink after 10am. No chewing gum, candy or mints. Take only the following medications with a SIP of water on the morning of surgery: __Take medications as usual.___ DO NOT STOP ANY OF YOUR OTHER PRESCRIPTION MEDICATIONS PRIOR TO SURGERY EXCEPT THE FOLLOWING Hold all vitamins and supplements for 3 days per anesthesiologist. Medications to discontinue per physician Date to take last dose Please no make-up, nail slovak, hairspray, perfume, deodorant, or body powder the day of surgery.? No jewelry (including any body piercings) or valuables the day of surgery, leave them at home.? Please take a shower or bath the night before, or the morning of, surgery with an antibacterial soap.? Wear comfortable, loose fitting clothing. - Jewelry must be removed prior to entering the operating room.? Rings and piercings that are not removed may be cut off. - The hospital will not accept responsibility for valuables.? - Please leave all valuables, including medications, at home the day of surgery. If you are going home after surgery, a licensed experienced truck driver must drive you home.? - NO public transportation without another adult if you receive anesthesia. Follow any additional instructions given to you from your surgeon. Telephone instructions given to __Ravi___and asked if any additional questions and then verbalized understanding. Patient advised to call surgeon office or pre surgery nurse liaison [phone] if any additional questions.
[2024-12-30 13:27] VITALS: BMI 32.3
--- NOTE | ~2025-01-05 | XR_ITS ---
EXAMINATION: XR fluoroscopy no charge DATE: 01/05/2025 12:31 INDICATION: Bilateral L3, L4 and L5 medial branch blocks TECHNIQUE: 10 fluoroscopic images of the lower lumbar spine were obtained during procedure performed by Dr. Hernandez. Radiologist was not present for the imaging or procedure. The amount of fluoroscopy time used during this procedure was 0.7 minutes. Total DAP was 5.627 Gycm^2. COMPARISON: None. FINDINGS/IMPRESSION: Needle tips with small amount of injected contrast positioned along the junction of the transverse an d inferior articular processes bilaterally at L4, L5 and S1 in expected location for medial nerve bra nch blocks. See procedure note for further detail. Reviewed, dictated and finalized at location A.
--- OUTSIDE RECORDS SUMMARY | 2025-01-05 00:13 | XMS_ITS | Clinical Summary ---
Author Organization [facility] Address [address] [place] [address] Care Team Providers Care Sole Assessor Name Role Phone Unavailable Primary Care Provider Unavailabl e Source Comments [facility],non-owned Affiliates and Associated Physician Practices is amultiple site organization consisting of ambulatory clinics and hospital sitesin [place], [place], [place] and [place]. This disclosure is being madepursuant to the Care Everywhere program and may not contain all information available regarding this patient. Last updated 18.[facility] Social History Tobacco Use Types Packs/Day Years [...]
[2025-01-05 11:15] VITALS: BP 115/69; PULSE 79; RESP 16; TEMP 36.8; O2SAT 97
--- NOTE | 2025-01-05 11:47 | WPDHPUPDATE1 ---
History and Physical Update Update Date/Time: 01/05/25 11:47 History and Physical has been reviewed, including an updated exam of the patient. There are NO changes in the patient's condition. Risks, benefits, and alternatives have been discussed and questions answered. Patient agrees to proceed with procedure.
--- NOTE | 2025-01-05 11:48 | W.PM.PROC2 ---
Procedure Note - Detailed Date of Procedure 01/05/25 Pre-op Diagnosis lumbosacral spondylosis, chronic low back pain Post-op Diagnosis Same Procedure Performed Diagnostic Bilateral Lumbar Medial Branch/Dorsal Ramus Blocks at L3, L4, L5 Treating the Bilateral L4-5, L5-S1 Facet Joints Under Fluoroscopic Guidance and with Contrast Control. (2 levels blocked). Surgeon Bravo Hernandez MD Lance Crewmember/Mlrs Sergeant None. Anesthesia Local Description of Procedure INFORMED CONSENT: Risks, benefits and alternatives to the procedure were discussed in detail with the patient who expressed explicit understanding and consent to proceed. Patient was informed verbally and in written form regarding the risks associated with the procedure including the low risk of serious infection, bleeding/bruising, allergic reaction, nerve or organ injury, paralysis, procedural site pain or discomfort, worsening pain and/or mobility, failure to treat and/or disfigurement. The patient expressed explicit understanding and consent to proceed. All materials required for the procedure were available prior to procedure start. Site and side were marked prior to procedure and confirmed in the presence of the patient. PROCEDURE IN DETAIL: The patient was brought to the procedural suite and placed in the prone position. Patient was made comfortable with use of pillows under the head/chest, hips and ankles. Skin overlying the injection site on the affected side(s) was prepared broadly with ChloraPrep applicator and draped in a sterile manner. Aseptic technique was used throughout. The endplates of the vertebral bodies at the site(s) of interest were aligned in the AP view. Ipsilateral oblique angulation was utilized to optimize visualization of the intersection between the superior articulating process and transverse process at each target site. Local anesthesia was established by infiltration with approximately 5 mL of 1% lidocaine via a 1-1/2 inch 27-gauge needle. A 25-gauge 3.5 inch Quincke spinal needle was advanced until the needle tip contacted periosteum at the target site, right L3. Lateral view was utilized to confirm the appropriate placement of the needle tip just anterior to the facet line and superior to the pedicle. In the Lateral view, 0.25 mL of Omnipaque 300 contrast medium was injected after negative aspiration for CSF, blood or other bodily fluid, showing appropriate extra-articular spread of contrast without evidence of intravascular, foraminal or intrathecal placement. A 0.5 mL solution of 2.0% PF Lidocaine was injected after negative repeat aspiration. Appropriate spread of the injectate was confirmed with washout of previously injected contrast. No parasthesias were elicited. Needle was removed completely intact without difficulty. The same exact procedure was repeated for all remaining levels on the ipsilateral side, right L4, L5 medial branches/dorsal ramus, modified as necessary to accommodate for the new target location with identical findings and results and no evidence of complication. The same exact procedure was repeated for all remaining levels on the contralateral side, left L3, L4, L5 medial branches/dorsal ramus, modified as necessary to accommodate for the new target location with identical findings and results and no evidence of complication. Images were saved and documented in the patient chart. Patient's skin was cleaned and sterile bandage applied. The patient tolerated the procedure well. The patient was transported to the recovery area in stable condition where they were observed for an appropriate amount of time prior to discharge, without evidence of complication. Patient was instructed on the appropriate completion of a pain diary over the next 12-24 hours. The patient was instructed to avoid excessive activity for the next 48 hours, including climbing and frequent use of stairs. Showers only for 48 hours. They were instructed not to drive or operate heavy machinery for 24 hours. They are to monitor for severe headaches, fevers, chills, night sweats, erythema/swelling at the site or any other signs of infection, bleeding/bruising, bowel or bladder changes as well as new pain, weakness or numbness in the upper or lower extremity. Should they notice these changes, they are instructed to call our office immediately or report directly to the nearest Emergency Department if no answer or if after posted office hours. COMPLICATIONS: None COMMENTS: None CONTRAST WASTED: 28.5mL Omnipaque 300. Complications No immediate complications Condition Stable Disposition Same day [facility] Billing Surgery - Charge Forward: Surgery Billing
[2025-01-05 12:10] VITALS: BP 154/84; PULSE 88; RESP 16; O2SAT 98
[2025-01-05 12:15] VITALS: BP 134/70; PULSE 83; RESP 16; O2SAT 98
[2025-01-05] MEDS: LIDOCAINE 2% PF LOCAL INJ 5 ML VIAL INFILTRATE (12:16)
[2025-01-05] MEDS: LIDOCAINE 1% PF INJ 5 ML VIAL 10 ML INFILTRATE (12:16)
[2025-01-05 12:20] VITALS: BP 118/56; PULSE 45; RESP 18; O2SAT 98
[2025-01-05 12:25] VITALS: BP 131/54; PULSE 58; RESP 16; O2SAT 98
== END 2025-01-05 12:43 | disposition home or self-care (01) ==
PROVIDERS: PCP Family Medicine; Visit Provider Anesthesiology Pain Medicine
PROC: (CPT 64493; principal; 2025-01-05 12:00)
DX: M48.062 Spinal stenosis, lumbar region with neurogenic claudication (principal); G89.29 Other chronic pain; I10 Essential (primary) hypertension; E11.9 Type 2 diabetes mellitus without complications; E78.2 Mixed hyperlipidemia; Z98.1 Arthrodesis status
CPT/HCPCS: 64493; 64494 ×2; 99199; J2003; Q9965

== ENCOUNTER 2025-01-29 11:35 | Outpatient (CLI) | payer BC, SELFPAY ==
[2025-01-29 12:24] LABS: Anion Gap 5 mmol/L (4-12); Blood Urea Nitrogen 15 mg/dL (9-20); Calcium 9.5 mg/dL (8.4-10.2); Carbon Dioxide 30 mmol/L (22-30); Chloride 105 mmol/L (98-107); Estimated Glomerular Filt Rate 55; Glucose 118 mg/dL (65-110); Potassium 5.5 mmol/L (3.4-5.0); Sodium 140 mmol/L (137-145)
== END 2025-01-29 11:36 | disposition home or self-care (01) ==
LOC: ANHSURGERY 11:39
PROVIDERS: Anesthesiology; PCP Family Medicine; Visit Provider Anesthesiology Pain Medicine
DX: E11.9 Type 2 diabetes mellitus without complications (principal); Z01.812 Encounter for preprocedural laboratory examination
CPT/HCPCS: 36415; 80048

== ENCOUNTER 2025-02-03 00:34 | Day surgery (SDC) | payer BC, SELFPAY ==
[2025-01-28 12:12] VITALS: BMI 32.0
--- NOTE | 2025-01-28 12:17 | PC.NURSE ---
Addendum entered by Flex Loredo RN 01/29/25 14:57: Correction. Patient told nothing to eat or drink after midnight. Original Note: Report to the Outpatient Waiting Room, entrance under the green pavilion located off [facility], at time _0830_ on date _32-20-1990_. Planned Procedure Time: _1030_.? Time changes happen often and if your time is changed the preop area will call you the afternoon before. - You and your visitor will be asked to self-screen and do not enter if you have any COVID symptoms. Please call surgeon if you need to reschedule. - A mask is optional within the hospital at this time. Patients may have clear liquids (water, carbonated beverages, clear teas, apple juice) until 3 hours prior to surgery with a maximum of 20 ounces. - No food from midnight until time of surgery and no smoking, or chewing tobacco (or any form of nicotine). No chewing gum, candy or mints. Take only the following medications with a SIP of water on the morning of surgery: ___None___ DO NOT STOP ANY OF YOUR OTHER PRESCRIPTION MEDICATIONS PRIOR TO SURGERY EXCEPT THE FOLLOWING Hold all vitamins and supplements for 3 days per anesthesiologist. Medications to discontinue per physician Date to take last dose____ Please no make-up, nail tongan, hairspray, perfume, deodorant, or body powder the day of surgery.? No jewelry (including any body piercings) or valuables the day of surgery, leave them at home.? Please take a shower or bath the night before, or the morning of, surgery with an antibacterial soap.? Wear comfortable, loose fitting clothing.? - Jewelry must be removed prior to entering the operating room.? Rings and piercings that are not removed may be cut off. - The hospital will not accept responsibility for valuables.? - Please leave all valuables, including medications, at home the day of surgery. If you are going home after surgery, a licensed telephone directory distributor driver must drive you home.? - NO public transportation without another adult if you receive anesthesia. - We recommend that an adult stay with you for 24 hours following discharge. - We also recommend that you do not drive, make important decision, drink alcoholic beverages, or take any drugs that were not prescribed by your health care provider for at least 24 hours after your discharge time. Follow any additional instructions given to you from your surgeon. Telephone instructions given to __Ravi__and asked if any additional questions and then verbalized understanding. Patient advised to call surgeon office or pre surgery nurse liaison [phone] if any additional questions.
--- NOTE | ~2025-02-03 | XR_ITS ---
EXAMINATION: XR fluoroscopy no charge DATE: 02/03/2025 09:38 INDICATION: Lumbar ablation TECHNIQUE: 8 images of the lumbar spine were obtained during procedure performed by Dr. Hernandez. Radiolo gist was not present for the imaging or procedure. The amount of fluoroscopy time used during this pr ocedure was 1.8 minutes. Total DAP was 16.134 Gycm^2. COMPARISON: None. FINDINGS/IMPRESSION: Images demonstrate needles advanced with distal tips positioned along the cephalad margin of the junc tion of the transverse and superior articular processes of L4, L5 and S1. See procedure note for furt her detail. Reviewed, dictated and finalized at location B.
--- OUTSIDE RECORDS SUMMARY | 2025-02-03 00:37 | XMS_ITS | Clinical Summary ---
Author Organization [facility] Address [address] [place] [address] Care Team Providers Care Craft Demonstrator Name Role Phone Unavailable Primary Care Provider Unavailabl e Source Comments [facility],non-owned Affiliates and Associated Physician Practices is amultiple site organization consisting of ambulatory clinics and hospital sitesin [place], [place], [place] and [place]. This disclosure is being madepursuant to the Care Everywhere program and may not contain all information available regarding this patient. Last updated 18.[facility] [employer] Social History Tobacco Use Types Packs/Day Years [...]
--- NOTE | 2025-02-03 05:34 | WPDHPUPDATE1 ---
History and Physical Update Update Date/Time: 02/03/25 05:34 History and Physical has been reviewed, including an updated exam of the patient. There are NO changes in the patient's condition. Risks, benefits, and alternatives have been discussed and questions answered. Patient agrees to proceed with procedure.
--- NOTE | 2025-02-03 05:36 | P.OP_ITS ---
Procedure Note - Detailed Date of Procedure 02/03/25 Pre-op Diagnosis lumbosacral with radiculopathy Post-op Diagnosis Same Procedure Performed Thermal Radiofrequency Ablation of the Bilateral Lumbar Medial Branches/Dorsal Rami at the L3, L4, L5 Levels Treating the Bilateral L4-5, L5-S1 Facet Joints Under Fluoroscopic Guidance (4 Levels Treated). Surgeon Bravo Hernandez MD Electronic Controls Repairer Supervisor None. Anesthesia Local (w/ MAC) Description of Procedure INFORMED CONSENT: Risks, benefits and alternatives to the procedure were discussed in detail with the patient who expressed explicit understanding and consent to proceed. Patient was informed verbally and in written form regarding the risks associated with the procedure including the low risk of serious infection, bleeding/bruising, allergic reaction, nerve or organ injury, paralysis, procedural site pain or discomfort, worsening pain and/or mobility, failure to treat and/or disfigurement. The patient expressed explicit understanding and consent to proceed. All materials required for the procedure were available prior to procedure start. Site and side were marked prior to procedure and confirmed in the presence of the patient. PROCEDURE IN DETAIL: The patient was brought to the procedural suite and placed in the prone position. Patient was made comfortable with use of pillows under the head/chest, hips and ankles. ASA standard monitors were applied and used throughout the procedure. Skin overlying the injection site on the affected side(s) was prepared broadly with ChloraPrep applicator and draped in a sterile manner. Aseptic technique was used throughout. The endplates of the vertebral bodies at the site(s) of interest were aligned in the AP view. Ipsilateral oblique angulation was utilized to optimize visualization of the intersection between the superior articulating process and transverse process at each target site. Local anesthesia was established by infiltration with approximately 5 mL of 1% lidocaine via a 1-1/2 inch 27-gauge needle divided over each site treated. A 16-gauge 100mm Proximexian RF needle with curved 10mm active tip was advanced in the AP view until the needle tip contacted the periosteum at the target site, the right L3 medial branch. Lateral view was utilized to adjust and confirm the appropriate placement of the needle tip just anterior to the facet line, superior to the pedicle and posterior to the foramen. Grounding electrode was in place and functioning. The appropriately-sized RF cannula was inserted into the RF needle and motor stimulation was performed with no subjective or objective evidence of recruited muscle activity with stimulation up to 2.0 volts at a frequency of 2Hz. 1.5 mL of 2.0% PF lidocaine was injected after negative aspiration. After a 90s pause, lesioning was performed to 90 degrees centigrade for 90s ensuring lack of symptoms in the extremity throughout. Needle was rotated 180 degrees and lesioning repeated in a similar manner. Patient tolerated this well. No paresthesias were elicited. Needle was removed completely intact without difficulty. The same procedure was repeated for all intended levels/ structures on the ipsilateral side, right L4, L5 medial branch/dorsal ramus with identical methodology, modified to compensate for new location, with similar results and no evidence of complication. The same exact procedure was repeated for all remaining levels on the contralateral side, left L3, L4, L5 medial branches/dorsal ramus, modified as necessary to accommodate for the new target location with identical findings/results and no evidence of complication. Images were saved and documented in the patient chart. Patient's skin was cleansed and sterile bandage applied. The patient tolerated the procedure well. The patient was transported to the recovery area in stable condition where they were observed for an appropriate amount of time prior to discharge, without evidence of complication. The patient was instructed to avoid excessive activity for the next 48 hours, including climbing and frequent use of stairs. Showers only for 48 hours. They were instructed not to drive or operate heavy machinery for 24 hours. They are to monitor for severe headaches, fevers, chills, night sweats, erythema/swelling at the site or any other signs of infection, bleeding/bruising, bowel or bladder changes as well as new pain, weakness or numbness in the upper or lower extremity. Should they notice these changes, they are instructed to call our office immediately or report directly to the nearest Emergency Department if no answer or if after posted office hours. COMPLICATIONS: None COMMENTS: None Complications No immediate complications Condition Stable Disposition PACU [facility] Billing Surgery - Charge Forward: Surgery Billing
[2025-02-03 08:45] VITALS: BP 125/79; PULSE 87; RESP 20; TEMP 37; O2SAT 99
[2025-02-03] MEDS: LACTATED RINGERS 1,000 ML 30 ML IV CONT (09:00)
--- NOTE | 2025-02-03 09:15 | P.PNAN_ITS ---
Anes - Initial Pre Proc Eval Procedure: Operation Date: 02/03/25 10:30 Proposed Procedures p Thermal Radio Frequency Ablation of the Bilateral L3, L4, L5 Medial Branch/Dorsal Rami Addressing the Bilateral L4-5, S1 Facet Joints Under Fluoroscopic Guidance - Bravo Hernandez MD Date/Time: 02/03/25 09:15 Surgeon: Bravo Hernandez MD Pre Op Diagnosis: lumbosacral with radiculopathy Patient Data Age: 54 Gender: M Height: 1.73 m Weight: 97.2 kg Last Vital Signs Temp 37.0 C 02/03/25 08:45 Pulse 87 02/03/25 08:45 Resp 20 02/03/25 08:45 BP 125/79 02/03/25 08:45 Pulse Ox 99 02/03/25 08:45 O2 Del Method Room Air 02/03/25 08:45 Allergies Allergy/AdvReac Type Severity Reaction Status Date / Time No Known Allergies Allergy Verified 02/03/25 09:09 Home Medications ?Medication ?Instructions ?Recorded ?Confirmed ?Type cinnamon bark 500 mg capsule 500 mg PO DAILY 05/23/23 02/03/25 History (Cinnamon) multivitamin 1 tablet PO DAILY 05/23/23 02/03/25 History atorvastatin 10 mg tablet See Rx Instructions .Route 08/20/24 02/03/25 Rx .COMPLEX #90 tabs lisinopril 2.5 mg tablet See Rx Instructions .Route 08/20/24 02/03/25 Rx .COMPLEX #90 tabs metformin 500 mg tablet,extended See Rx Instructions .Route .COMPLEX 11/25/24 02/03/25 History release 24 hr pregabalin 150 mg capsule 150 mg PO Q12H 30 days #60 caps 12/16/24 02/03/25 Rx flash glucose sensor (FreeStyle See Rx Instructions .Route 01/19/25 01/28/25 Rx Simona 14 Day Sensor kit) .COMPLEX #6 ea sildenafil 100 mg tablet See Rx Instructions .Route 01/20/25 01/28/25 Rx .COMPLEX #30 tabs Laboratory Tests 02/03/25 02/03/25 09:04 09:05 Sodium Pending Potassium Pending Chloride Pending Carbon Dioxide Pending Anion Gap Pending BUN Pending Creatinine Pending Estim Creat Clear Calc Pending Estimated GFR Pending Glucose Pending POC Capillary Glucose 120 H mg/dl (65-105) Calcium Pending Patient hx anesthesia problems: none Family hx anesthesia problems: none Results Review: All pre-operative results and documents have been reviewed as part of the pre- operative evaluation. [facility] Past Medical History Medical History Hypertension Cervical radiculopathy at C5 Type 2 diabetes mellitus without complications Mixed hyperlipidemia Sprain of medial collateral ligament of right knee, initial encounter Right elbow tendonitis Family History Family History Mother Family history of malignant neoplasm of breast in first degree relative Social History Social History Smoking status: Never smoker Alcohol intake: current Alcohol use details: maybe 3 drinks in the last 2 months Substance use: current Substance use type: marijuana Other substance usage details: Nightly for sleep Lack of Transportation: No Lack of Food: Never True Current Housing: I Have Housing Concerned About Future Housing: No Difficulty Paying Gas/Electric Bills: No Difficulty Paying for Meds: No Currently Unemployed: No Education: Master's Degree or Higher Difficulty w/ Childcare or Family Care: No Living arrangements: alone Gender identity (if verbalized by the patient): Male Spiritual care concerns: No Anes - Eval Final PreProcedure Day of Procedure 02/03/25 09:15 Patient weight: obese Heart: regular rate and rhythm Lungs: clear to auscultation Airway: Mallampati scale class II Neurological: alert and oriented Last oral intake: >/= 8 hours ASA classification: III Emergent: no Anesthetic plan: proceed Anesthesia type and monitoring: monitored anesthesia care and standard monitoring Results Review: All pre-operative results and documents have been reviewed as part of the pre- operative evaluation. Informed Consent: The patient's anesthetic plan and its attendant risks and benefits were discussed with the patient/family/POA. Questions were solicited and answers provided to the satisfaction of the patient/family/POA.
[2025-02-03 09:31] LABS: Chloride 107 mmol/L (98-107)
[2025-02-03 09:42] LABS: Anion Gap 9 mmol/L (4-12); Blood Urea Nitrogen 24 mg/dL (9-20); Calcium 9.4 mg/dL (8.4-10.2); Carbon Dioxide 25 mmol/L (22-30); Estimated CRCL calculation 64 ml/min; Estimated Glomerular Filt Rate 55; Glucose 119 mg/dL (65-110); Potassium 4.4 mmol/L (3.4-5.0); Sodium 141 mmol/L (137-145)
[2025-02-03] MEDS: LIDOCAINE 1% PF INJ 5 ML VIAL 3.5 ML INFILTRATE (10:14)
[2025-02-03] MEDS: LIDOCAINE 2% PF LOCAL INJ 5 ML VIAL 10 ML INFILTRATE (10:14)
[2025-02-03 10:21] VITALS: BP 137/77; PULSE 69; RESP 14; O2SAT 100
[2025-02-03 10:51] VITALS: BP 132/81; PULSE 74; RESP 14
== END 2025-02-03 11:12 | disposition home or self-care (01) ==
PROVIDERS: Anesthesiology; PCP Family Medicine; Visit Provider Anesthesiology Pain Medicine
PROC: (CPT 64635; principal; 2025-02-03 10:30)
DX: M54.17 Radiculopathy, lumbosacral region (principal); M48.062 Spinal stenosis, lumbar region with neurogenic claudication; M54.41 Lumbago with sciatica, right side; G89.29 Other chronic pain; Z98.1 Arthrodesis status
CPT/HCPCS: 64635; 64636 ×6; 36415; 80048; 82948; 99199; J2003; J2250; J3010; J7120

== ENCOUNTER 2025-06-29 14:14 | Outpatient (CLI) | payer BC, SELFPAY ==
--- NOTE | ~2025-06-29 | XR_ITS ---
EXAM/PROCEDURE: XR chest 2V HISTORY: M47.817 - Spondylosis without myelopathy or radiculopathy... COMPARISON: None available. TECHNIQUE: Two view(s) of the chest. FINDINGS: LUNGS: Clear of acute processes. PLEURAL SPACES: Clear. No evidence of fluid or pneumothorax. HEART/ MEDIASTINUM: Normal in appearance. SOFT TISSUES: No significant findings. BONES: No acute osseous abnormality. There is orthopedic hardware in the C-spine. IMPRESSION: No acute findings. Reviewed, dictated and finalized at location B. L PATTERNMAKER IMPRESSION: No acute findings.
--- NOTE | 2025-06-29 15:05 | ECG_ITS ---
Test Date: 2025-06-29 15:22:26 Measurements Intervals [place] Rate: 64 P: 52 [place]: 189 QRS: 60 QRSD: 106 T: -1 QT: 386 QTc: 399 Interpretive Statements SINUS RHYTHM WITH SINUS ARRHYTHMIA NONSPECIFIC T-WAVE ABNORMALITY No previous ECG available for comparison Electronically Signed On 06-30-2025 05:50:16 IGNITION MECHANIC by Guilherme Rolon D.O
[2025-06-29 15:40] LABS: Hematocrit 46.9 % (42.0-52.0); Hemoglobin 15.2 g/dL (14.0-18.0); Mean Corpuscular HGB Conc 32.4 g/dl (32-36); Mean Corpuscular Hemoglobin 28.4 pg (26-34); Mean Corpuscular Volume 87.5 fl (80-100); Platelet Count Result 187 k/mm3 (150-375); Red Blood Count 5.36 M/mm3 (4.6-6.20); White Blood Count 5.2 K/mm3 (4.5-10.0)
[2025-06-29 15:42] LABS: Add Urine Microscopic? NO; Appearance Urine Clear (Clear); Glucose Urine UA Negative (Negative); Leukocyte Esterase Ur Negative LEU/UL (Negative); Nitrate Urine Negative (Negative); Specific Grav Ur 1.030 (1.001-1.035)
[2025-06-29 15:53] LABS: INR 1.1; Prothrombin Time 13.9 Seconds (11.1-14.7)
[2025-06-29 15:54] LABS: Partial Thromboplastin Time 26.7 Seconds (22.3-36.8)
[2025-06-29 15:56] LABS: Anion Gap 5 mmol/L (4-12); Blood Urea Nitrogen 25 mg/dL (9-20); Calcium 9.7 mg/dL (8.4-10.2); Carbon Dioxide 32 mmol/L (22-30); Chloride 102 mmol/L (98-107); Estimated Glomerular Filt Rate 55; Glucose 93 mg/dL (65-110); Potassium 4.3 mmol/L (3.4-5.0); Sodium 139 mmol/L (137-145)
[2025-06-29 16:08] LABS: Hemoglobin A1C 6.3 % (<5.7)
--- OUTSIDE RECORDS SUMMARY | 2025-06-29 16:53 | XMS_ITS | Clinical Summary ---
Author Organization [facility] Address [address] [place] [address] Care Team Providers Care Flexboard Operator Name Role Phone Unavailable Primary Care Provider Unavailabl e Source Comments [facility],non-owned Affiliates and Associated Physician Practices is amultiple site organization consisting of ambulatory clinics and hospital sitesin [place], [place], [place] and [place]. This disclosure is being madepursuant to the Care Everywhere program and may not contain all information available regarding this patient. Last updated 18.[facility] [employer] Social History Tobacco Use Types Packs/Day Years [...] 2022 ZOSTER VACCINE (1 of 2) 2022 DEPRESSION SCREENING 08/06/2024 COVID-19 VACCINE (1 - 2024-2 6 season) 2025 INFLUENZA VACCINE (#1) 2025 HIB VACCINE Aged Out No longer [...]
== END 2025-06-29 14:15 | disposition home or self-care (01) ==
PROVIDERS: PCP Family Medicine; Visit Provider Neurological Surgery
DX: Z01.818 Encounter for other preprocedural examination (principal); M47.817 Spondylosis without myelopathy or radiculopathy, lumbosacral region
CPT/HCPCS: 36415; 71046; 80048; 81003; 83036; 85027; 85610; 85730; 93005

== ENCOUNTER 2025-07-05 10:25 | Outpatient (CLI) | payer BC, SELFPAY ==
--- NOTE | ~2025-07-05 | CT_ITS ---
EXAMINATION: [id number] DATE: 07/05/2025 10:51 INDICATION: Lumbar spondylosis. TECHNIQUE: Computed tomography (CT) of the lumbar spine was performed without intravenous contrast. Automated exposure control and iterative reconstruction technique were employed. The dose-length product was 744.48 mGy-cm. COMPARISON: Lumbar spine MRI 08/19/2024, chest radiographs 06/29/2025 FINDINGS: There is 6 degrees levocurvature of lumbar spine. S1 is a transitional segment. There is 4 mm anterolisthesis of L5 on S1. There is mild chronic anterior wedging of T12 vertebral body. There is mildly decreased disc height at L3-L4 and L5-S1. The following disc levels are specifically discussed: L1-L2: The disc does not extend beyond the endplate margin. There is mild right and moderate left facet joint osteoarthritis. There is no neural foraminal stenosis. There is no central canal stenosis. L2-L3: The disc is bulging. There is moderate bilateral facet joint osteoarthritis. There is mild bilateral neural foraminal stenosis. There is mild central canal stenosis. L3-L4: The disc is bulging. There is mild right and severe left facet joint osteoarthritis. There is mild bilateral neural foraminal stenosis. There is mild central canal stenosis. L4-L5: The disc is bulging. There is severe bilateral facet joint osteoarthritis. There is mild bilateral neural foraminal stenosis. There is mild central canal stenosis. L5-S1: The disc is bulging. There is severe bilateral facet joint osteoarthritis. There is mild right and moderate left neural foraminal stenosis. There is mild central canal stenosis. IMPRESSION: 1. Moderate lumbar spondylosis, stable from 08/19/2024. Reviewed, dictated and finalized at location E. TECH
== END 2025-07-05 10:26 | disposition home or self-care (01) ==
PROVIDERS: PCP Family Medicine; Visit Provider Neurological Surgery
DX: Z01.818 Encounter for other preprocedural examination (principal); M47.896 Other spondylosis, lumbar region
CPT/HCPCS: 72131